=== PATIENT | male | born 1945 | race Native Hawaiian/Other Pacific Islander ===

== ENCOUNTER 2016-04-01 08:30 | Outpatient (CLI) | payer OTHER ==
[~2016-04-01] VITALS: Ht 193 cm; Wt 80.7 kg
== END 2016-04-01 23:32 | disposition home or self-care (01) ==
LOC: NM 08:30
DX: R07.89 Other chest pain (principal); Z72.0 Tobacco use
CPT/HCPCS: A9500; J2785